=== PATIENT | male | born 1980 | race Caucasian/White ===

== ENCOUNTER 2025-09-13 02:28 | Day surgery (SDC) | payer OTHER, SELFPAY ==
[2025-08-30 09:43] VITALS: BMI 36.3
--- OUTSIDE RECORDS SUMMARY | 2025-09-13 02:31 | XMS_ITS | Encounter Summary ---
Author Organization [facility] Address [facility] [place] [address] Care Team Providers Care Distribution System Operator Name Role Phone Val Padilla MD Primary Care Provider [phone] Encounter Details Date Type Department Care Team (Latest Contact Info) Description 12/29/2023 [employer] Message Enc [facility] Multispecialty Care - [place] [address] [place] [address] [address] [place] [address] Val Padilla MD [address] [facility] [address] [place], [place] [id number] Your lab results Social History Tobacco Use Types Packs/Day Years Used Date Smoking Tobacco: Never Smokeless Tobacco: Never Comments:Counseled by Dr. Bambi reed. Alcohol Use Standard Drinks/Week Comments Not Currently 0 (1 standard drink = 0.6 oz pur e alcohol) 07/12/23: Sober x 3 weeks PHQ-2 Answer Date Recorded Patient Health Questionnaire-2 Score 6 10/29/2023 Sex and Gender Information Value Date Recorded Sex Assigned at Not on file Legal Sex Male 7:43 PM CDT Gender Identity Not on file Sexual Orientation Not on file documented as of this encounter Plan of Treatment Not on file documented as of this encounter Visit Diagnoses Not on filedocumented in this encounter Additional Health Concerns Assessment Noted Time PHQ-9 Depression Total Score: 20 024 2:37 PM MANTEL CRAFTSMAN documented as of this encounter Care Teams Distribution System Operator Relationship Specialty Start Date End Date Val Padilla MD [address] [facility] [address] [place], [place] [id number] PCP - General INTERNAL MEDICINE 05/19/23 documented as of this encounter
--- OUTSIDE RECORDS SUMMARY | 2025-09-13 02:31 | XMS_ITS | Clinical Summary ---
Author Organization [facility] Address [facility] [place] [facility] [place] [address] Care Team Providers Care Implementation Engineer Name Role Phone Val Padilla MD Primary Care Provider [phone] Allergies Active Allergy Reactions Criticality Noted Date Comments Penicillins Other (see comment) 07/12/2023 Patient is not sure of reaction. It happened when he was a child. Medications amphetamine-dextro amphetamine (ADDERALL) 20 MG tabletIndications: Attention deficit hyperactivity disorder (ADHD), predominantly inattentive type Take 1 tablet (20 mg total) by mouth daily. 30 tablet 4 Active lisdexamfetamine (VYVANSE) 30 MG capsuleIndications :Attention deficit hyperactivity disorder (ADHD), unspecified ADHD type Take 1 capsule (30 mg total) by mouth every morning. 30 capsule 4 Active Active Problems Problem Noted Date Diagnosed Date Insomnia, unspecified type 02/10/2024 ADHD (attention deficit hyperactivity disorder) 07/12/2023 Immunizations Immunization Administration Dates Next Due Influenza Adult (Generic) 07/14/2021,07/04/2020 PFIZER COVID-19 (ORIGINAL FO RMULATION, PURPLE CAP) mRNA, LNP-S, PF, 30 MCG/0.3 ML DOSE 11/11/2020,10/21/2020 Tdap (Generic) 04/06/2023 Family History Medical History Relation Comments No Known Problems Father Mental Health Mother Relation Status Comments Father Mother Alive Social History Tobacco Use Types Packs/Day Years Used Date Smoking Tobacco: Never Smokeless Tobacco: Never Tobacco Cessation:Counseling Given: Yes Comments:Counseled by Dr. Padilla. Alcohol Use Standard Drinks/Week Comments Not Currently 0 (1 standard drink = 0.6 oz pur e alcohol) 07/12/23: Sober x 3 weeks PHQ-2 Answer Date Recorded Patient Health Questionnaire-2 Score 6 10/29/2023 Sex and Gender Information Value Date Recorded Sex Assigned at Not on file Legal Sex Male 7:43 PM CDT Gender Identity Not on file Sexual Orientation Not on file Last Filed Vital Signs Vital Sign Reading Time Taken Comments Blood Pressure 129/85 02/10/2024 9:40 AM CDT Pulse 71 02/10/2024 9:40 AM CDT Temperature 36.6 C (97.9 F) 02/10/2024 9:40 AM CDT Respiratory Rate 18 02/10/2024 9:40 AM CDT Oxygen Saturation 98% 02/10/2024 9:40 AM CDT Inhaled Oxygen Concentration - - Weight 130.9 kg (288 lb 9.6 oz) 02/10/2024 9:40 AM CDT Height 182.9 cm (6') 02/10/2024 9:40 AM CDT Body Mass Index 39.14 02/10/2024 9:40 AM CDT Plan of Treatment Health Maintenance Due Date Last Done Comments Colorectal Cancer Screening Colonoscopy (10 Years) 1980 Hepatitis B Vaccines (1 of 3 - 19+ 3-dose series) 1999 HPV Vaccines (1 - 3-dose SCD M series) 2007 PHQ-2 (Physician [place] [facility]) 09/27/2024 10/29/2023 Annual Physical 10/29/2024 10/29/2023 COVID-19 Vaccine (3 - 2024-2 6 season) 2025 11/11/2020, 10/21/2020 Influenza Adult (#1) 2025 07/14/2021, 07/04/2020 DTaP, Tdap and Td Vaccines ( 2 - Td or Tdap) 04/06/2033 04/06/2023 Hepatitis C Completed 12/27/2023 Hepatitis A Vaccines Aged Out No long er eligible based on patient's age to complete this topic Meningococcal B Vaccine Aged Out No l onger eligible based on patient's age to complete this topic Meningococcal Vaccine Aged Out No thierno sandra eligible based on patient's age to complete this topic Pneumococcal Vaccine: Pediatrics (0 to 5 Years) and At-Risk Patients (6 to 49 Years) Aged Out No longer eligible b ased on patient's age to complete this topic RSV Immunizations Under 20 Months Aged Out No longer eligible b ased on patient's age to complete this topic Procedures Procedure Name Priority Date/Time Associated Diagnosis Comments HEPATITIS C ANTIBODY Routine 12/27/2023 3:12 PM CDT Annual physical exam General medical exam from Last 3 Months or Most Recently Relevant to Health Maintenance Results * HEPATITIS C ANTIBODY (12/27/2023 3:12 PM CDT) HEPATITIS C AB NON-REACTI VE NON-REACT KAYLA 12/28/2023 9:46 PM CDT [facility] Comment: ANTIBODIES TO HCV NOT DETECTED. DOES NOT EXCLUDE THE POSSIBILITY OF EXPOSURE TO HCV. 12/27/2023 3:12 PM CDT Val Padilla MD LABORATORY Final Result [facility] [address] [place] [address], [id number] from Last 3 Months or Most Recently Relevant to Health Maintenance Insurance [employer] Care Teams Implementation Engineer Relationship Specialty Start Date End Date Val Padilla MD [address] [address] PCP - General INTERNAL MEDICINE 05/19/23
--- OUTSIDE RECORDS SUMMARY | 2025-09-13 02:31 | XMS_ITS | Encounter Summary ---
Author Organization [facility] Address [facility] [place] [address] Care Team Providers Care Health And Wellness Coordinator Name Role Phone Val Padilla MD Primary Care Provider [phone] Encounter Details Date Type Department Care Team (Late st Contact Info) Description 12/30/2023 [employer] Message Enc [facility] Family & Internal Medicine [address] [id number] Mychart, [facility] Provider Lab Results Social History Tobacco Use Types Packs/Day Years [...] Depression Total Score: 20 024 2:37 PM ENTERTAINMENT REPORTER documented as of this encounter Care Teams Health And Wellness Coordinator Relationship Specialty Start Date End Date Val Padilla MD [address] [facility] [address] [place] [address] PCP - General INTERNAL MEDICINE 05/19/23 documented as of this encounter
--- OUTSIDE RECORDS SUMMARY | 2025-09-13 02:32 | XMS_ITS | Encounter Summary ---
Author Organization [facility] Health Address [address] [place] [address] Care Team Providers Care Park Ranger Name Role Phone Unavailable Primary Care Provider Unavailabl e Prior Encounters Date Type Department Care Team Description 10/16/2019 Converted 13x Documents [facility] [address] [place] [address] <No scans attached> Plan of Treatment Not on file Visit Diagnoses Not on file
--- OUTSIDE RECORDS SUMMARY | 2025-09-13 02:32 | XMS_ITS | Encounter Summary ---
Author Organization [facility] Address [facility] [place] [address] Care Team Providers Care Computer System Technician Name Role Phone Val Padilla MD Primary Care Provider [phone] Encounter Details Date Type Department Care Team (Latest Contact Info) Description 07/14/2023 [employer] Message Enc [facility] Medical [facility] Multispecialty Care - [place] [address] [place] [address] [address] [place], [place] [phone] Val Padilla MD [address] [facility] [address] [place] [address] Medication request Social History Tobacco Use Types Packs/Day Years Used Date Smoking Tobacco: Never Smokeless Tobacco: Never Comments:Counseled by Dr. Bambi reed. Alcohol Use Standard Drinks/Week Comments Not Currently 0 (1 standard drink = 0.6 oz pur e alcohol) 07/12/23: Sober x 3 weeks PHQ-2 Answer Date Recorded Patient Health Questionnaire-2 Score 2 07/12/2023 Sex and Gender Information Value Date Recorded Sex Assigned at Not on file Legal Sex Male 7:43 PM CDT Gender Identity Not on file Sexual Orientation Not on file documented as of this encounter Plan of Treatment Not on file documented as of this encounter Visit Diagnoses Not on filedocumented in this encounter Care Teams Computer System Technician Relationship Specialty Start Date End Date Val Padilla MD [address] [facility] [address] [place], [place] [phone] PCP - General INTERNAL MEDICINE 05/19/23 documented as of this encounter
--- OUTSIDE RECORDS SUMMARY | 2025-09-13 02:32 | XMS_ITS | Encounter Summary ---
Author Organization [facility] Address [facility] [place] [address] Care Team Providers Care Terminal Block Assembler Name Role Phone Val Padilla MD Primary Care Provider [phone] Encounter Details Date Type Department Care Team (Late st Contact Info) Description 08/12/2023 [employer] Message Enc [facility] Multispecialty Care - [place] [address] [place] [address] [address] [place], [place] [id number] Val Padilla MD [address] [facility] [address] [place], [place] [id number] Urine test Social History Tobacco Use Types Packs/Day Years [...] on filedocumented in this encounter Care Teams Terminal Block Assembler Relationship Specialty Start Date End Date Val Padilla MD [address] [facility] [address] [place] [address] PCP - General INTERNAL MEDICINE 05/19/23 documented as of this encounter
--- OUTSIDE RECORDS SUMMARY | 2025-09-13 02:32 | XMS_ITS | Data Portability ---
Author Organization MORGAN Hsieh SIMalaika Cortez Address [address] [place] [address] Care Team Providers Care Hvac Operations Technician Name Role Phone YOLANDA DUQUE Primary Care Provider YINKA Beach Acquisition Marketing Manager [phone] Assessment No assessment recorded. Plan of Treatment Reminders Order Date Submit Date Provider Last Modified By Organization Details Last Modified Time Details Appointments ANY 15 2025 10:45A M MARITZA Eddy Not available Not available Not available Lab TSH + free T4, serum 2024 026 [email or web address] [facility], [address], [place], [address], 07/04/2025 11:06:28 CBC w/ auto diff 2024 026 [email or web address] [facility], [address], [place], [address], 07/04/2025 11:06:28 CMP, serum or plasma 2024 026 [email or web address] [facility], [address], [place], [address], 07/04/2025 11:06:27 testos terone , total, serum 2024 026 [email or web address] [facility], [address], [place], [address], 07/04/2025 11:06:28 PSA, serum or plasma 2024 026 [email or web address], [address], [place], [address], 07/04/2025 11:06:27 lipid panel, serum 2024 026 [email or web address], [address], [place], [address], 07/04/2025 11:06:28 HbA1c (hemog lobin A1c), blood 2024 026 [email or web address], [address], [place], [address], 07/04/2025 11:06:28 TSH + free T4, serum 2024 025 ARIAS [facility], [address], [place], [address], 03/29/2025 10:58:05 drug screen , urine 2024 [email or web address], [address], [place], [address], 04/17/2025 18:50:52 testos terone , total, serum 2024 [facility]25 [email or web address], [address], [place], [address], 04/17/2025 18:50:07 PSA, serum or plasma 2024 [facility]25 [email or web address], [address], [place], [address], 04/17/2025 18:50:17 HbA1c (hemog lobin A1c), blood 2024 025 joey [facility], [address], [place], [address], 04/17/2025 18:49:35 microa lbumin /creat inine, mass ratio, urine 2024 [facility], [address], [place], [address], 03/30/2025 10:55:56 Referral dermat ologis t referr al 2024 025 [facility], [address], [place], [address], 07/05/2025 16:30:37 Procedures colono scopy screen ing (PROC) 2024 025 [facility] Yinka hale MD, [address], [address], [place], [address], 07/17/2025 20:15:26 Surgeries None record ed. Imaging XR, foot, 2 view 2024 [email or web address] [facility] ([facility]aging [facility]ammogram), [address] [place], [address], 04/25/2025 11:10:52 Medication Orders Ozempi c 0.25 mg or 0.5 mg (2 mg/3 mL) subcut aneous pen inject or 2024 025 [facility][id number], [address], [place], [id number], 07/04/2025 11:06:54 mupiro angelito 2 % topica l ointme nt 2024 025 [email or web address] [facility][id number], [address], [place], [id number], 07/04/2025 10:58:52 indome thacin 50 mg capsul e 2024 [facility] #[id number], [address], [place], [id number], 03/28/2025 13:23:49 testos terone cypion ate 200 mg/mL intram uscula r oil 2024 025 [facility] #[id number], [address], [place], [id number], 01/15/2025 15:50:14 Ozempi c 0.25 mg or 0.5 mg (2 mg/3 mL) subcut aneous pen inject or 2024 025 [facility] #[id number], [address], [place], [id number], 01/15/2025 15:50:13 Patient TargetsNo targets recorded. 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 Problems Name Problem SNOMED Code Status Onset Date Resolution Date Notes Provider Name and Address Organization Details Recorded Time Adult attention deficit hyperactivi ty disorder 084180574 Active 2023 MARITZA Eddy Attn: Accountin g,[address] [facility], [place], [address], [place] [facility] 4 23:32:39 Obesity 886960743 Active 2023 MARITZA Eddy Attn: Accountin g,[address] [facility], [place], [address], [place] [facility] 4 23:33:07 Long-term drug therapy Active 2023 MARITZA Eddy Attn: Accountin g,[address] [place], [address], [place] [facility] 4 23:33:14 Male hypogonadis m 08796418 Active 2023 MARITZA Eddy Attn: Accountin g,[address] [place], [address], [place] [facility] 4 12:36:54 Subclinical hypothyroid ism 57397387 Active 2023 MARITZA Eddy Attn: Accountin g,[address] [place], [address], [place] [facility] 4 19:20:59 Bipolar disorder 08151115 Active 2023 MARITZA Eddy Attn: Accountin g,[address] [place], [address], [place] [facility] 4 19:21:00 Body mass index 30+ - obesity 259190982 Active 2024 Gino Napoles [place] null, [place] [facility] 5 14:12:58 Long-term current use of stimulant 7731906172258 9108 Active 2024 MARITZA Eddy Attn: Accountin g,[address] [place], [address], [place] [facility] 5 14:18:50 Obese class I 4717363577400 07 Active 2024 MARITZA Eddy Attn: Shelbie lauren,[address], [place], [address], [facility] - [facility] 5 17:30:52 Obese class III 419630104 Active 2024 MARITZA Eddy Attn: Shelbie lauren,[address] [facility], [place], [address], [facility] - [facility] 5 14:45:50 Type 2 diabetes mellitus without complicatio n 466475764 Active 2024 MARITZA Eddy Attn: Shelbie lauren,[address] [facility], [place], [address], [facility] - [facility] 5 21:33:59 Problem Notes None recorded. Procedures Surgical History Date Name Laterality Status Provider Name and Address Organization Details Recorded Time 01/27/20 Diabetic Foot Exam completed Gino [place]oles [place] 01/26/2025 16:29:12 tympanostomy completed Gino Napoles [place] 05/19/2024 12:50:19 screening colonoscopy completed Gino Napoles MA [facility] 08/29/2025 15:35:00 Imaging Results None recorded. Procedure Notes None recorded. Medical Equipment None Reported. Allergies Allergen ID Allergen Name Allergen Category Reaction Reaction Severity Criticality Documentation Date Start Date Code Code System Note Provider Name and Address Organization Details Recorded Time 694542 Product containin g penicilli n (product) medicatio n Not available Not available Not available 05/19/2024 53304 8001 SNOMED Gino Napoles MA null, [place] - [place] 12:03:24 Medications Name Sig Start Date Stop Date Status Note LastModified by Organization Details LastModified Time doxycyclin e hyclate 100 mg capsule Take 1 capsule by oral route for 7 days. 08/29 completed Not Available Not Available Not Available clindamyci n HCl 300 mg capsule Take 1 capsule every 6 hours by oral route for 7 days, for spider bite. 04/20 completed Not Available Not Available Not Available Zithromax Z-Michael 250 mg tablet TAKE 2 TABLETS (500 MG) BY ORAL ROUTE ONCE DAILY FOR 1 DAY THEN 1 TABLET (250 MG) BY ORAL ROUTE ONCE DAILY FOR 4 DAYS 08/06 completed Not Available Not Available Not Available sulfametho xazole 800 mg-trimeth oprim 160 mg tablet TAKE 1 TABLET BY MOUTH TWICE DAILY 04/06 completed Not Available Not Available Not Available terbinafin e HCl 250 mg tablet TAKE 1 TABLET BY MOUTH EVERY DAY active Not Available Not Available No t Available dextroamph etamine-am phetamine 20 mg tablet TAKE 1 TABLET BY MOUTH DAILY 05/19 completed Not Available Not Available Not Available indomethac in 50 mg capsule TAKE 1 CAPSULE BY MOUTH THREE TIMES DAILY WITH MEALS 03/28 completed Not Available Not Available Not Available mupirocin 2 % topical ointment APPLY A SMALL AMOUNT TOPICALL Y TO THE AFFECTED AREA OF ABDOMEN THREE TIMES DAILY 07/04 completed Not Available Not Available Not Available testostero ne cypionate 200 mg/mL intramuscu lar oil Inject 0.5 mL every day by intramus c. route for 30 days. active Not Available Not Available No t Available colchicine 0.6 mg tablet TAKE 1 TABLET BY MOUTH EVERY DAY NEEDED 2024 active Not Available Not Available Not Avai lable chlorhexid ine gluconate 0.12 % mouthwash RINSE AND SPIT 15ML BY MOUTH TWICE DAILY 03/28 completed Not Available Not Available Not Available testostero ne 03/28 completed inj Not Available Not Available Not Available lisdexamfe tamine 30 mg capsule Take by oral route for 30 days. 03/28 completed Not Available Not Available Not Available lisdexamfe tamine 40 mg capsule TAKE 1 CAPSULE BY MOUTH EVERY DAY active Not Available Not Available No t Available levothyrox ine 100 mcg capsule Take 1 capsule every day by oral route. 12/27 completed pt hasn't been taking this Not Available Not Available Not Available lisdexamfe tamine 10 mg capsule Take 3 capsules every day by oral route in the morning. 11/03 completed Not Available Not Available Not Available Ozempic 0.25 mg or 0.5 mg (2 mg/3 mL) subcutaneo us pen injector ADMINIST ER 0.5MG UNDER THE SKIN ONCE WEEKLY active Not Available Not Available No t Available Klayesta 100,000 unit/gram topical powder APPLY TO THE AFFECTED AREA TWICE DAILY active Not Available Not Available No t Available Vitals Date Recorded Body mass index (BMI) Body weight Systolic And Diastolic Provider Name and Address Organization Details Last Updated DateTime 12/27/2024 37.6 kg/m2 163644.09 g 136/80 mm[Hg] MARITZA Eddy Attn: Accounting,[address] [place], [address], [facility] 01/16/2025 15:55:20 Date Recorded Body height Oxygen saturation Heart rate Systolic And Diastolic Provider Name and Address Organization Details Last Updated DateTime 12/27/2024 182.88 cm 96 % 87 /min 146/90 mm[Hg] Gino Napoles MA [facility] 12/27/2024 14:16:39 Date Recorded Body height Body mass index (BMI) Body weight Oxygen saturation Heart rate Respiratory rate Systolic And Diastolic Provider Name and Address Organization Details Last Updated DateTime 182.88 cm 37.7 kg/m2 927921. 68 g 98 % 86 /min 20 /min 142/82 mm[Hg] Gino Napoles MA [facility] 16:28:41 Date Recorded Systolic And Diastolic Provider Name and Address Organization Details Last Updated DateTime 03/28/2025 130/80 mm[Hg] MARITZA Eddy Attn: Accounting,[address] [place], [address], [facility] 03/28/2025 14:46:04 Date Recorded Body height Body mass index (BMI) Body weight Oxygen saturation Heart rate Respiratory rate Systolic And Diastolic Provider Name and Address Organization Details Last Updated DateTime 182.88 cm 40.1 kg/m2 082054. 34 g 97 % 80 /min 20 /min 142/80 mm[Hg] Gino Napoles MA [facility] 14:24:22 Date Recorded Respiratory rate Systolic And Diastolic Provider Name and Address Organization Details Last Updated DateTime 07/04/2025 18 /min 132/90 mm[Hg] MARITZA Eddy Attn: Accounting,[address] [facility], [place], [address], [facility] 07/04/2025 11:05:52 Date Recorded Body height Body mass index (BMI) Body weight Oxygen saturation Heart rate Systolic And Diastolic Provider Name and Address Organization Details Last Updated DateTime 182.88 cm 40.6 kg/m2 534002. 12 g 97 % 70 /min 156/82 mm[Hg] Gino Napoles MA [facility] 10:50:14 Date Recorded Body height Body mass index (BMI) Body weight Oxygen saturation Heart rate Systolic And Diastolic Provider Name and Address Organization Details Last Updated DateTime 182.88 cm 37.6 kg/m2 442011. 09 g 97 % 80 /min 140/80 mm[Hg] Gino Napoles MA [facility] 15:36:38 Social History Question Answer Notes LastModified by Organizat ion Details LastModified Time Tobacco Smoking Status Never Smoker Gino Napoles MA null, [facility] 05/19/2024 12:05:04 Do You Have An Advance Directive? No Information not available 05/19/2024 Are You Blind Or Do You Have Difficulty Seeing? Yes Contacts Information not available 05/19/2024 What Is Your Level Of Caffeine Consumption? Moderate Information not available 05/19/2024 In The 14 Days Before Symptom Onset, Have You Had Close Contact With A Laboratory-confir med COVID-19 While That Case Was Ill? No Information not available 05/19/2024 In The 14 Days Before Symptom Onset, Have You Had Close Contact With A Person Who Is Under Investigation For COVID-19 While That Person Was Ill? No Information not available 05/19/2024 Have You Been To An Area Known To Be High Risk For COVID-19? No Information not available 05/19/2024 Are You Deaf Or Do You Have Serious Difficulty Hearing? No Information not available 05/19/2024 What Type Of Diet Are You Following? REGULAR Information not available 05/19/2024 Are There Any Guns Present In Your Home? No Information not available 05/19/2024 What Was The Date Of Your Most Recent Tobacco Screening? 08/29/2025 Information not available 08/29/2025 What Is Your Relationship Status? Domestic Partner Information not available 05/19/2024 Do You Use Your Seat Belt Or Car Seat Routinely? Yes Information not available 05/19/2024 Do You Have Smoke And Carbon Monoxide Detectors In Your Home? Yes Information not available 05/19/2024 Do You Use Sunscreen Routinely? No In The Sun/ On The [place] Information not available 05/19/2024 Has Tobacco Cessation Counseling Been Provided? No Information not available 05/19/2024 Sex: Male Functional Status Question Answer Note LastModified by Organizat ion Details LastModified Time Do you use any illicit or recreational drugs? No Information not available 05/19/2024 Do you or have you ever used any other forms of tobacco or nicotine? No Information not available 05/19/2024 What is your level of alcohol consumption? Occasional Information not available 05/19/2024 Are you currently employed? Yes Information not available 05/19/2024 Are you able to care for yourself independently? 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 Occasional Information not available 05/19/2024 Mental Status None recorded. Family History Relationship Description Onset Age of this Age Resolved Age Notes LastModified by Organization Details LastModified Time Father Malignant neoplastic disease 54 [email or web address] Not available 2023 12:04:44 Father Harmful pattern of use of alcohol [email or web address] Not available 2023 12:50:34 Mother Attention deficit hyperactivit y disorder [email or web address] Not available 05/19 12:50:41 Mother Depressive disorder [email or web address] Not available 2023 12:50:45 Medical History Condition Response Coronary Artery Disease N Other N Atrial Fibrillation N High Blood Pressure N Thyroid Problems N Kidney or Bladder Problems N Depression N COPD N Blood Clots N GI Problems N Have you had a mammogram in the last yea r? N Skin Problems N Anemia N Heart Attack ([place]) N Diabetes N Anxiety Disorder N Muscle, Joint, or Bone Problems N Seizures/Epilepsy N Have you had a colonoscopy in the last 1 0 years? N Acid Reflux (GERD) N Cancer N Stroke N Allergies N Asthma N Have you had a PSA blood test in the las t year? N High Cholesterol N Hepatitis N Liver Disease N Headaches N Osteoporosis N Heart Failure N Immunizations Vaccine Type Date Status Note Provider Nam e and Address Organization Details Recorded Time Influenza, split virus, quadrivalent, preservative 0 completed ALISHA [place]as, [place] [facility] 09/06/2024 12:08:36 COVID-19, mRNA, LNP-S, PF, 30 mcg/0.3 mL dose 1 completed ALISHA Canas, [place] - [facility] 09/06/2024 12:08:36 COVID-19, mRNA, LNP-S, PF, 30 mcg/0.3 mL dose 1 completed ALISHA [place], [place] [facility] 09/06/2024 12:08:36 Influenza, split virus, quadrivalent, PF 1 completed ALISHA [place] [facility] 09/06/2024 12:08:36 Past Encounters Encounter ID Performer Location Encounter Start Date Encounter Closed Date Diagnosis/Indication Diagnosis SNOMED-CT Code Diagnosis ICD10 Code Diagnosis IMO Codes Diagnosis Note [id number] Flo Neff MD [facility] [place] [address] [place] [address] 05/19/2024 11:54:14 05/19/2024 13:58:42 Body mass index 30+ - obesity 613293678 Z68.38 BMI is 38.4 Adult atte ntion deficit hyperactivity disorder 110565994 F90.9 Due to lack of efficacy after extended trial patient would like to discontinu e Adderall that was managed by previous PCP and transition ed to Vyvanse therapy. We will start Vyvanse 30 mg daily. Controlled substance contract has been completed and follow-up appointmen ts planned. Bipolar disorder 9228481 4 F31.9 Underlying bipolar disorder history, patient is not currently on medication but does feel that he is overall better managed when ADHD is under some control. Long-term drug therapy 432127896 Z79.899 Labs are currently up-to-date with previous PCP in which we will request medical records Obesity 118335712 E66.8 discussed healthy diet, exercise, controllin g carbohydra sanjiv and added sugars in the diet [id number] Flo Neff MD [facility] [employer] [address] [place] [address] 09/06/2024 12:01:30 09/06/2024 13:46:48 Adult attention deficit hyperactivity disorder 862457028 F90.9 stable on the vyvanse 30mg daily. f/u 3 months. Bipolar disorder 6110225 4 F31.9 Underlying bipolar disorder history, patient is not currently on medication but does feel that he is overall better managed when ADHD is under some control. Body mass index 30+ - obesity 726530078 Z68.38 BMI is 38.4 Obesity 732139925 E66.9 discussed healthy diet, exercise, controllin g carbohydra sanjiv and added sugars in the diet Long-term drug therapy 251103957 Z79.899 Labs are currently up-to-date with previous PCP in which we will request medical records Male hypogonadism 851850 06 E29.1 pt is taking testostero ne injections from chiropract or/functio nal medicine office. labs are UTD through their office. Subclinica l hypothyroidism 94625326 E02 pt is taking levothyrox ine from [facility] med provider. [id number] Flo Neff MD [facility] [employer] [address] [place] [address] 11/15/2024 10:03:52 11/15/2024 10:42:45 Body mass index 40+ - severely obese 426085613 Z68.41 BMI 40.1 Obesity 656953057 E66.9 discussed healthy diet, exercise, controllin g carbohydra sanjiv and added sugars in the diet Disorder o f tendon of biceps 694462845 M67.929 Refer for MRI of the upper extremity left side without contrast rule out biceps partial tear Left media l elbow tendinopathy 2390657118 97753 M77.02 This medial epicondyli tis of the left elbow will be evaluated further by Orthopedic s after we get MRI of the upper arm. We will refer him to ortho. Purchase a tennis elbow strap to stabilize the elbow region for now. Male hypogonadism 461842 06 E29.1 pt is taking testostero ne injections from chiropract or/functio nal medicine office. Due for updated testostero ne and PSA labs. Patient would like to transfer this prescripti on to the PCP office. Long-term drug therapy 888467199 Z79.899 cmp, cbc and b12, folate labs are due Cholesterol screening 27 6682881 Z13.220 Fasting lipid panel due Diabetes m ellitus screening 262502911 Z13.1 Diabetes screening due Thyroid di sorder screening 818533434 Z13.29 Routine thyroid function testing due [id number] Flo Neff MD [facility] [address] [place] [address] 12/27/2024 14:06:42 12/27/2024 16:17:15 Adult attention deficit hyperactivity disorder 135007399 F90.9 Stable on Vyvanse 30 mg daily. Follow-up 90 days Body mass index 30+ - obesity 547336915 Z68.37 BMI 37.6 Obesity 431783420 E66.9 discussed healthy diet, exercise, controllin g carbohydra sanjiv and added sugars in the diet Long-term current use of stimulant 4351792141 4630084 Z79.899 Urine drug screen testing ordered for long-term stimulant use Type 2 cely betes mellitus without complication 283217052 E11.9 New diagnosis of type 2 diabetes with an A1c of 6.5%. We will start Ozempic therapy as directed for titration course. Repeat lab orders in 90 days given Thyroid di sorder screening 382680413 Z13.29 Routine thyroid function testing due on next set of labs Male hypogonadism 915673 06 E29.1 pt is taking testostero ne injections from chiropract or/functio nal medicine office. Due for updated testostero ne and PSA labs. Patient would like to transfer this prescripti on to the PCP office. Refill on testostero ne given labs ordered for 90 days [id number] Flo Neff MD [facility] [employer] [address] [place] [address] 01/26/2025 16:01:17 01/29/2025 16:27:40 Body mass index 30+ - obesity 348995767 Z68.37 BMI 37.6 Pain in hallux 579031054 M79.675 75603516 Possible gout check x-ray of the left foot and start indomethac in 50 mg 3 times daily with food p.r.n. as directed short-term course. Possible gout Obese class I 1803499902 11167 E66.811 0116707824 discussed healthy diet, exercise, controllin g carbohydra sanjiv and added sugars in the diet [id number] Flo Neff MD [facility] [employer] [address] [place] [address] 03/28/2025 14:15:51 03/28/2025 14:52:11 Adult attention deficit hyperactivity disorder 231434652 F90.9 Boost to lisdexamfe tamine 40 mg daily on next script. He is currently not taking medication while he is on antibiotic for the spider bite. Type 2 cely betes mellitus without complication 087766289 E11.9 New diagnosis of type 2 diabetes with an A1c of 6.5%. Patient is currently on Ozempic therapy and using as directed on titration. Male hypogonadism 005020 06 E29.1 Patient had labs completed today including follow-up on testostero ne dosing. Long-term current use of stimulant 3954918365 7436452 Z79.899 Obese class III 35540334 5 E66.813 8900036002 BMI 40.1 Spider bite wound 892135 008 T63.304D 90443556 Add Bactroban ointment to apply to the spider bite region of the abdomen 3 times daily for the next 7 days [id number] Flo Neff MD [facility] [employer] [address] [place] [address] 07/04/2025 10:33:39 07/04/2025 11:54:28 Adult attention deficit hyperactivity disorder 167205138 F90.9 Stable on generic Vyvanse 40 mg daily. Follow up again in 3 months Type 2 cely betes mellitus without complication 835947756 E11.9 Due for updated A1c in September. 6.5% on initial diagnosis. Patient has been encouraged to use Ozempic as directed Male hypogonadism 267008 06 E29.1 Last labs are March 2025. Next set of PSA and testostero ne will be due in September. Patient is on weekly testostero ne injection Long-term current use of stimulant 4264012276 6079037 Z79.899 Obese class III 06693568 5 E66.813 [id number] discussed healthy diet, exercise, controllin g carbohydra sanjiv and added sugars in the diet Thyroid di sorder screening 589687220 Z13.29 Routine thyroid function testing due on next set of labs Long-term current use of drug therapy 028841884 Z79.899 74918494 cmp, cbc and b12, folate labs are due Cholesterol screening 27 8365780 Z13.220 799614 Fasting lipid panel due Screening for malignant neoplasm of colon 867984925 Z12.11 357245 Patient will be 45 the end of June. Refer for baseline screening colonoscop y Multiple skin tags 43134 7009 L91.8 [id number] Refer to dermatolog y for removal of skin tags [id number] Flo Neff MD [facility] [address] [place] [address] 08/29/2025 15:16:59 08/30/2025 12:38:55 Obese class II [id number] 92065 E66.812 E66.3 3367606721 discussed healthy diet, exercise, controllin g carbohydra sanjiv and added sugars in the diet Acute gout 932426128 M10 .9 Adult atte ntion deficit hyperactivity disorder 436983015 F90.9 Stable on generic Vyvanse 40 mg daily. Follow up again in 3 months Type 2 cely betes mellitus without complication 128931492 E11.9 Due for updated A1c in September. 6.5% on initial diagnosis. Patient has been encouraged to use Ozempic as directed Long-term current use of stimulant 0179374100 0016612 Z79.899 Obese class III 37772444 5 E66.813 5143861702 discussed healthy diet, exercise, controllin g carbohydra sanjiv and added sugars in the diet Long-term current use of drug therapy 225486844 Z79.899 38103229 cmp, cbc and b12, folate labs are due Pain in left foot 433499 8227 40728 M79.672 253237 Tinea pedis 5284758 B35. 3 54558831 Health Concerns Section Related Observation LastModified by Organization Detai ls LastModified Time None Recorded Concern Status LastModified by Organization Details LastModified Time None Recorded Advance Directives Directive N: Payers Insurance Date Sequence Insurance Name Policy Number Policy Sandoval Covered Member ID Sandoval Member ID Guarantor Name 08/27/2025 1 [facility] [place] [id number] Norberto Middleton [id number] 2 Norberto Middleton Notes Date Note Type Note Provider Name and Address Organization Details Recorded Time 12/27/2024 text/html Patient would also like to have his hypogonadism managed by this office. He previously was on testosterone supplement from local chiropractor office. It has become quite costly and he would like to transfer the prescription to the PCP office New type 2 diabetes diagnosis with an A1c of 6.5%. Updated labs to review adult ADHD- pt is stable on vyvanse 30mg daily therapy. no complaints. hypothyroidism- stable on levothyroxine 100mcg daily per functional medicine provider. male hypogonadism- pt is taking testosterone injection from functional medicine/chiropract or office. MARITZA Eddy Attn: Accounting[address] [place], [address], [facility] 01/16/2025 15:57:38 01/26/2025 text/html Patient presents with complaint of pain in his left great toe along with swelling and mild redness and just significant amount of pain in the last several days. He has been taking meul-zlz-hzawlwl anti-inflammatory or Tylenol with no improvement. He is busy on his feet. He does not have any new shoes and he has no injury to the toe. MARITZA Eddy Attn: Accounting[address] [place], [address], [facility] 02/18/2025 17:31:13 03/28/2025 text/html Patient would also like to have his hypogonadism managed by this office. He previously was on testosterone supplement from local chiropractor office. It has become quite costly and he would like to transfer the prescription to the PCP office New type 2 diabetes diagnosis with an A1c of 6.5%. Now on Ozempic therapy adult ADHD- pt is stable on vyvanse 30mg daily therapy. no complaints. male hypogonadism- pt is taking testosterone injection MARITZA Eddy Attn: Accounting[address] [place], [address], [facility] 04/21/2025 21:36:06 07/04/2025 text/html Patient has some skin tags he would like to have looked at New type 2 diabetes diagnosis with an A1c of 6.5%. Now on Ozempic therapy but has not started it. Due for updated labs adult ADHD- pt is stable on vyvanse 40mg daily therapy. no complaints. male hypogonadism- pt is taking testosterone injection MARITZA Eddy Attn: Accounting[address] [facility], [place], [address], [facility] 07/14/2025 15:58:57
--- OUTSIDE RECORDS SUMMARY | 2025-09-13 02:32 | XMS_ITS | Continuity of Care Document ---
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 Plan of Treatment Reminders Order Date Submit Date Provider Last Modified By Organization Details Last Modified Time Details Appointments ANY 15 2025 10:45A M MARITZA Eddy Not available Not available Not available Lab TSH + free T4, serum 2024 026 [email or web address] [facility], [address], [place], [address], 07/04/2025 11:06:28 CBC w/ auto diff 2024 026 [email or web address], [address], [place], [address], 07/04/2025 11:06:28 CMP, serum or plasma 2024 026 [email or web address], [address], [place], [address], 07/04/2025 11:06:27 testoster one, total, serum 2024 026 [email or web address], [address], [place], [address], 07/04/2025 11:06:28 PSA, serum or plasma 2024 026 [email or web address] [email or web address], [address], [place], [address], 07/04/2025 11:06:27 lipid panel, serum 2024 026 [email or web address], [address], [place], [address], 07/04/2025 11:06:28 HbA1c (hemoglob in A1c), blood 2024 026 [email or web address], [address], [place], [address], 07/04/2025 11:06:28 Referral dermatolo gist referral 2024 025 [facility], [address] [place], [address], 07/05/2025 16:30:37 Procedures colonosco py screening (PROC) 2024 [facility] Yinka hale MD, [address], [address], [place], [address], 07/17/2025 20:15:26 Surgeries None recorded. Imaging None recorded. Medication Orders Ozempic 0.25 mg or 0.5 mg (2 mg/3 mL) subcutane ous pen injector 2024 [id number], [address], [place], [id number], 07/04/2025 11:06:54 Patient TargetsNo targets recorded. 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 ultiple skin tags Referring Physician: Yolanda Duque, Internal Medicine, Encounter Date: 07/04/2025 Problems Name Problem SNOMED Code Status Onset Date Resolution Date Notes Provider Name and Address Organization Details Recorded Time Adult attention deficit hyperactivi ty disorder 659509982 Active 2023 MARITZA Eddy Attn: Accountin g[address] [place], [address], [place] [facility] 4 23:32:39 Obesity 946803236 Active 2023 MARITZA Eddy Attn: Accountin [address] [place], [address], [place] [facility] 4 23:33:07 Long-term drug therapy Active 2023 MARITZA Eddy Attn: Accountin g[address] [place], [address], [place] [facility] 4 23:33:14 Male hypogonadis m 38310795 Active 2023 MARITZA Eddy Attn: Accountin g[address] [place], [address], [place] [facility] 4 12:36:54 Subclinical hypothyroid ism 53527864 Active 2023 MARITZA Eddy Attn: Accountin g[address] [place], [address], [place] [facility] 4 19:20:59 Bipolar disorder 19729074 Active 2023 MARITZA Eddy Attn: Accountin g[address] [place], [address], [place] [facility] 4 19:21:00 Body mass index 30+ - obesity 542253631 Active 2024 Gino Napoles MA null, [place] [facility] 5 14:12:58 Long-term current use of stimulant 8818526795127 9108 Active 2024 MARITZA Eddy Attn: Shelbie lauren,[address] [facility], [place], [address], [facility] - [facility] 5 14:18:50 Obese class I 4349216726697 07 Active 2024 MARITZA Eddy Attn: Shelbie lauren,[address] [facility], [place], [address], [facility] - [facility] 5 17:30:52 Obese class III 773235975 Active 2024 MARITZA Eddy Attn: Shelbie lauren,[address] [facility], [place], [address], [facility] - [facility] 5 14:45:50 Type 2 diabetes mellitus without complicatio n 334139087 Active 2024 MARITZA Eddy Attn: Shelbie lauren,[address] [facility], [place], [address], [facility] - [facility] 5 21:33:59 Problem Notes None recorded. Procedures Surgical History Date Name Laterality Status Provider Name and Address Organization Details Recorded Time 01/27/20 Diabetic Foot Exam completed Gino Napoles MA [facility] 01/26/2025 16:29:12 tympanostomy completed Gino Napoles MA [facility] 05/19/2024 12:50:19 screening colonoscopy completed Gino Napoles MA [facility] 08/29/2025 15:35:00 Imaging Results None recorded. Procedure Notes None recorded. Medical Equipment None Reported. Allergies Allergen ID Allergen Name Allergen Category Reaction Reaction Severity Criticality Documentation Date Start Date Code Code System Note Provider Name and Address Organization Details Recorded Time 113009 Product containin g penicilli n (product) medicatio n Not available Not available Not available 05/19/2024 85022 8001 SNOMED ALISHA Canas, [facility] 12:03:24 Medications Name Sig Start Date Stop [...] Available No t Available Vitals Date Recorded Respiratory rate Systolic And Diastolic Provider Name and Address Organization Details Last Updated DateTime 07/04/2025 18 /min 132/90 mm[Hg] MARITZA Eddy Attn: [address]ing[address] [place], [address], [facility] 07/04/2025 11:05:52 Date Recorded Body height Body mass index (BMI) Body weight Oxygen saturation Heart rate Systolic And Diastolic Provider Name and Address Organization Details Last Updated DateTime 182.88 cm 40.6 kg/m2 210656. 12 g 97 % 70 /min 156/82 mm[Hg] Gino Napoles MA [facility] 10:50:14 Social History Question Answer Notes LastModified by Organizat ion Details LastModified Time Tobacco Smoking Status Never Smoker Gino Napoles MA null, [facility] 05/19/2024 12:05:04 Do You Have An Advance [...] Functional Status Question Answer Note LastModified by [email or web address] ion Details LastModified Time Do you use [...] Response Coronary Artery Disease N Other N High Blood Pressure N Atrial Fibrillation N Kidney or Bladder Problems N Thyroid Problems N Blood Clots N COPD N Depression N GI Problems N Have you had a mammogram in the last yea r? N Skin Problems N Anemia N Heart Attack ([place]) N Diabetes N Anxiety Disorder N Muscle, Joint, or Bone Problems N Seizures/Epilepsy N Have you had a colonoscopy in the last 1 0 years? N Acid Reflux (GERD) N Cancer N Stroke N Asthma N Allergies N Have you had a PSA blood test in the las t year? N High Cholesterol N Hepatitis N Liver Disease N Headaches N Osteoporosis N Heart Failure N Immunizations Vaccine Type Date Status Note Provider Nam e and Address Organization Details Recorded Time Influenza, split virus, quadrivalent, preservative 0 completed ALISHA Canas, [place] - [facility] 09/06/2024 12:08:36 COVID-19, mRNA, LNP-S, PF, 30 mcg/0.3 mL dose 1 completed ALISHA Canas, [place] - [facility] 09/06/2024 12:08:36 COVID-19, mRNA, LNP-S, PF, 30 mcg/0.3 mL dose 1 completed ALISHA [place]as, [place] [facility] 09/06/2024 12:08:36 Influenza, split virus, quadrivalent, PF 1 completed ALISHA [place]as, [place] [facility] 09/06/2024 12:08:36 Past Encounters Encounter ID Performer Location Encounter Start Date Encounter Closed Date Diagnosis/Indication Diagnosis SNOMED-CT Code Diagnosis ICD10 Code Diagnosis IMO Codes Diagnosis Note [id number] Flo Neff MD [facility] [address] [place] [address] 07/04/2025 10:33:39 07/04/2025 11:54:28 Adult attention deficit hyperactivity disorder 747212012 F90.9 Stable on generic Vyvanse 40 mg daily. Follow up again in 3 months Type 2 cely betes mellitus without complication 022685563 E11.9 Due for updated A1c in September. 6.5% on initial diagnosis. Patient has been encouraged to use Ozempic as directed Male hypogonadism 114005 06 E29.1 Last labs are March 2025. Next set of PSA and testostero ne will be due in September. Patient is on weekly testostero ne injection Long-term current use of stimulant 1849060911 7524516 Z79.899 Obese class III 27515501 5 E66.813 5801417024 discussed healthy diet, exercise, controllin g carbohydra sanjiv and added sugars in the diet Thyroid di sorder screening 731760278 Z13.29 Routine thyroid function testing due on next set of labs Long-term current use of drug therapy 745120827 Z79.899 09870292 cmp, cbc and b12, folate labs are due Cholesterol screening 27 5632695 Z13.220 726757 Fasting lipid panel due Screening for malignant neoplasm of colon 342184770 Z12.11 [id number] Patient will be 45 the end of June. Refer for baseline screening colonoscop y Multiple skin tags 27433 7009 L91.8 06309377 Refer to dermatolog y for removal of skin tags Health Concerns Section Related Observation LastModified by Organization Detai ls LastModified Time None Recorded Concern Status LastModified by Organization Details LastModified Time None Recorded Payers Encounter Date Sequence Insurance Name Policy Number Policy Sandoval Covered Member ID Sandoval Member ID Guarantor Name 07/04/[address] [facility] [id number] Norberto Middleton [id number] Norberto Middleton Notes Date Note Type Note Provider Name and Address Organization Details Recorded Time 07/04/2025 text/html Patient has some skin tags he would like to have looked at New type 2 diabetes diagnosis with an A1c of 6.5%. Now on Ozempic therapy but has not started it. Due for updated labs adult ADHD- pt is stable on vyvanse 40mg daily therapy. no complaints. male hypogonadism- pt is taking testosterone injection MARITZA Eddy Attn: Accounting[address] [facility], [place], [address], [facility] 07/14/2025 15:58:57
--- OUTSIDE RECORDS SUMMARY | 2025-09-13 02:32 | XMS_ITS | Clinical Summary ---
Author Organization [facility] Health Address [address] 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
[2025-09-13 10:42] VITALS: BP 162/98; PULSE 75; RESP 18; TEMP 36.1; O2SAT 96; BMI 36.5
[2025-09-13] MEDS: LACTATED RINGERS 1,000 ML 150 ML IV CONT (10:52)
--- NOTE | 2025-09-13 11:03 | WPDANESEPPF ---
Anes - Initial Pre Proc Eval Procedure: Operation Date: 09/13/25 14:00 Proposed Procedures p Screening Colonoscopy - Zacarias Lopez MD Date/Time: 09/13/25 11:03 Surgeon: Zacarias Lopez MD Pre Op Diagnosis: Screening Patient Data Age: 45 Gender: M Height: 1.85 m Weight: 125.5 kg Last Vital Signs Temp 97 F L 09/13/25 10:42 Pulse 75 09/13/25 10:42 Resp 18 09/13/25 10:42 BP 162/98 H 09/13/25 10:42 Pulse Ox 96 09/13/25 10:42 O2 Del Method Room Air 09/13/25 10:42 Allergies Allergy/AdvReac Type Severity Reaction Status Date / Time Penicillins Allergy Unknown Unknown Verified 09/13/25 10:41 Home Medications ?Medication ?Instructions ?Recorded ?Confirmed ?Type colchicine 0.6 mg tablet 0.6 mg PO DAILY 08/30/25 09/13/25 History lisdexamfetamine 30 mg capsule 30 mg PO DAILY 08/30/25 09/13/25 History semaglutide 0.25 mg or 0.5 mg (2 2 mg subcut WEEKLY 09/13/25 09/13/25 History mg/3 mL) subcutaneous pen injector (Ozempic) Patient hx anesthesia problems: none Family hx anesthesia problems: none Results Review: All pre-operative results and documents have been reviewed as part of the pre-operative evaluation. [facility] Social History Social History Alcohol intake: current Other substance usage details: Occasional Gummies Spiritual care concerns: No Anes - Eval Final PreProcedure Day of Procedure 09/13/25 11:03 Patient weight: obese Lungs: normal air movement Airway: Mallampati scale class II and special considerations (Upper partial. ) Neurological: alert and oriented Last oral intake: >/= 8 hours ASA classification: II Emergent: no Anesthetic plan: proceed Anesthesia type and monitoring: general GIVS and standard monitoring Results Review: All pre-operative results and documents have been reviewed as part of the pre-operative evaluation. 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 Informed Consent: The patient's anesthetic plan and its attendant risks and benefits were discussed with the patient/family/POA. Questions were solicited and answers provided to the satisfaction of the patient/family/POA.
--- NOTE | 2025-09-13 11:18 | PM.HPGS ---
History of Present Illness History of Present Illness Consent: Risks, benefits, and alternatives have been discussed and questions answered. Patient agrees to proceed with procedure. Chief complaint: Screening Narrative: Norberto Middleton is a 45 year old male here for first screening colonoscopy Review of Systems Review of Systems: All systems reviewed & are unremarkable except as noted in HPI and below PMFSH Past Medical History Medical History (Updated 09/13/25 @ 11:19 by Zacarias Lopez MD) Colon cancer screening Social History Social History Alcohol intake: current Other substance usage details: Occasional Gummies Spiritual care concerns: No Meds Home Medications and Allergies Home Medications ?Medication ?Instructions ?Recorded ?Confirmed ?Type colchicine 0.6 mg tablet 0.6 mg PO DAILY 08/30/25 09/13/25 History lisdexamfetamine 30 mg capsule 30 mg PO DAILY 08/30/25 09/13/25 History semaglutide 0.25 mg or 0.5 mg (2 2 mg subcut WEEKLY 09/13/25 09/13/25 History mg/3 mL) subcutaneous pen injector (Ozempic) Allergies Allergy/AdvReac Type Severity Reaction Status Date / Time Penicillins Allergy Unknown Unknown Verified 09/13/25 10:41 Vital Signs Vital Signs - 24 hr 09/13/25 10:42 Temperature 97 F L Pulse Rate 75 Respiratory Rate 18 Blood Pressure 162/98 H Pulse Oximetry 96 Oxygen Delivery Room Air Exam Const: General: comfortable and no acute distress HENMT: Face/Nose/Sinus: Normal nares present Eyes: General: appearance normal, both eyes and all related structures Neck: Neck: no JVD Resp: Auscultation: clear to auscultation bilaterally Cardio: Rate: regular rate Rhythm: regular rhythm GI: Inspection: non-distended GI Palp: Yes Soft to palpation Skin: General skin exam: normal color Psych: Mental Status: mental status grossly normal Assessment and Plan Assessment and plan (1) Colon cancer screening: Code(s): Z12.11 - Encounter for screening for malignant neoplasm of colon Status: Acute Assessment and Plan: colonoscopy
[2025-09-13 11:36] VITALS: BP 120/81; PULSE 76; RESP 12; O2SAT 95
[2025-09-13 11:46] VITALS: BP 120/79; PULSE 74; RESP 16; O2SAT 95
[2025-09-13 11:56] VITALS: BP 122/63; PULSE 74; RESP 18; O2SAT 95
== END 2025-09-13 12:05 | disposition home or self-care (01) ==
PROVIDERS: PCP Physician Assistant; Referring Provider Physician Assistant; Visit Provider Internal Medicine Gastroenterology
PROC: 0DJD8ZZ Inspection of Lower Intestinal Tract, Via Natural or Artificial Opening Endoscopic (ICD-10-PCS; CPT 45378; principal; 2025-09-13 14:00)
DX: Z12.11 Encounter for screening for malignant neoplasm of colon (principal); K64.8 Other hemorrhoids; K57.30 Diverticulosis of large intestine without perforation or abscess without bleeding; F12.90 Cannabis use, unspecified, uncomplicated; E66.9 Obesity, unspecified; Z68.36 Body mass index [BMI] 36.0-36.9, adult; Z79.85 Long-term (current) use of injectable non-insulin antidiabetic drugs
CPT/HCPCS: 45378; 82948; J2003; J2704; J7120